=== PATIENT | male | born 1945 | race Caucasian/White ===

== ENCOUNTER → 2018-06-17 16:11 | Outpatient (CLI) | payer OTHER, SELFPAY ==
--- NOTE | 2018-06-17 | DI.RAD.S_ITS ---
PROCEDURE: XR CERVICAL SPINE 2V OR 3V INDICATIONS: Cervicalgia TECHNIQUE: 3 view(s) of the cervical spine were acquired. COMPARISON: None. FINDINGS: Bones: No fractures or dislocations to the T1 level. The lateral masses of C1 appear intact on the odontoid view. No suspicious bony lesions. Straightening of the normal cervical lordosis and trace anterolisthesis of C3 on C4. Trace retrolisthesis of C5 on C6 and C6 on C7. Severe C5-C6 and C6-C7 disc degeneration. Multilevel facet arthropathy. Soft tissues: No prevertebral soft tissue swelling. IMPRESSION: Severe cervical disc degeneration, most pronounced at C5-C6 and C6-C7. Extensive endplate osteophyte formation. Diffuse facet arthropathy. Loss of the normal cervical lordosis. Dictated by: Jaspreet Fulton M.D. on 06/17/2018 at 18:10 Approved by: Jaspreet Fulton M.D. on 06/17/2018 at 18:11
== END ==
PROVIDERS: PCP Family Medicine; Visit Provider Family Medicine
DX: M50.321 Other cervical disc degeneration at C4-C5 level (principal); M47.812 Spondylosis without myelopathy or radiculopathy, cervical region
CPT/HCPCS: 72040

== ENCOUNTER 2024-10-28 14:54 | Emergency (ER) | payer MEDICARE, SELFPAY ==
[2024-10-28] VITALS (17 sets, daily range): BP systolic 129–167; BP diastolic 87–101; PULSE 75–97; RESP 16–26; TEMP 36.8; O2SAT 94–97; BMI 22.3
--- NOTE | 2024-10-28 15:01 | DI.RAD.S_ITS ---
PROCEDURE: XR CHEST 1V INDICATIONS: Shortness of breath TECHNIQUE: One view of the chest was acquired. COMPARISON: None. FINDINGS: Surgical changes and devices: None. Lungs and pleura: Small bilateral pleural effusions, greater on the right. Opacities in the right mid lung zone as well as the right medial lower lung zone. Mediastinum: Mediastinal contours appear normal. Heart size is normal. Bones and chest wall: No suspicious bony lesions. Overlying soft tissues appear unremarkable. IMPRESSION: Right pulmonary opacities, may represent infection. Recommend follow-up radiograph after treatment to ensure resolution and exclude underlying neoplasm. Small bilateral pleural effusions. Mild prominence of the interstitial markings may represent pulmonary edema. Dictated by: Kishor Stevens M.D. on 10/28/2024 at 15:46 Approved by: Kishor Stevens M.D. on 10/28/2024 at 15:47
--- NOTE | 2024-10-28 15:08 | EKG_ITS ---
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
--- NOTE | 2024-10-28 15:37 | ED_ITS ---
HPI - SOB/Dyspnea <Real Bolanos MD - Last Filed: 11/03/24 08:48> General Chief Complaint: Shortness of Breath/Dyspnea Stated Complaint: Sent from DR to test heart Time Seen by Provider: 10/28/24 15:21 Source: patient Mode of arrival: Ambulatory Limitations: no limitations History of Present Illness HPI Narrative: Patient is sent here from outpatient echocardiogram with [facility] office in [facility] [place]. Patient was having outpatient echocardiogram due to dyspnea ongoing for the past 1 month. Family doctor had seen patient for pneumonia place on antibiotics and heard a murmur and scheduled outpatient echocardiogram. While at the cardiology center in [facility] [place], blood or blood bank technician noticed abnormality on the echocardiogram and alerted Dr. Pelaez, patch setter, in the office and was instructed to come here for further evaluation. Patient does have very audible systolic murmur. Denies any previous cardiac history. Denies any chest pain. Patient is scheduled to see Dr. Pelaez in 2 days for the 1st time Related Data Home Medications Medication Instructions Recorded Confirmed CHOLECALCIFEROL (VITAMIN D3) 5,000 units PO QDAY ##0 11/04/12 magnesium citrate ##0 03/24/13 vit [id number]-[id number]-LC no.15 500 ##0 06/12/16 mcg-400 mcg-10 mg-400 mg capsule (GlycoTrol) [CO-Q-10] Q DAY ##0 07/04/16 vitamins A and D-white 5 gm Q DAY ##0 09/26/16 petrolatum-lanolin topical ointment in a packet Previous Rx's Medication Instructions Recorded lisinopril 20 mg tablet 20 mg PO QDAY #90 mg 05/21/16 clopidogrel 75 mg tablet (Plavix) 75 mg PO QDAY #90 tabs 06/12/16 atorvastatin 10 mg tablet (Lipitor) 10 mg PO HS #90 tabs 07/10/16 tramadol 50 mg tablet 0 PO SEE INSTRUCTIONS #30 tabs 08/15/16 betamethasone dipropionate 0.05 % 1 gilma topical QDAY ##30 09/26/16 topical cream furosemide 20 mg tablet (Lasix) 20 mg PO DAILY #7 tabs 10/28/24 Allergies Allergy/AdvReac Type Severity Reaction Status Date / Time aspirin [ASPIRIN] Allergy Intermediate RASH, Unverified 04/11/18 11:52 HIVES AND WHEEZING Review of Systems <Real Bolanos MD - Last Filed: 11/03/24 08:48> Review of Systems Narrative: GENERAL: Negative chills, fatigue, malaise, fever, sweats. HEENT: Negative sinus pain, ear pain, sore throat RESPIRATORY: Positive dyspnea, negative cough CARDIOVASCULAR: Negative chest pain, palpitations GASTROINTESTINAL: Negative vomiting, nausea, abdominal pain : Negative dysuria, frequency, hematuria MUSCULOSKELETAL: Negative muscle or bony pain SKIN: Negative rash, skin lesions NEUROLOGIC: Negative weakness, numbness ROS Unobtainable: All systems reviewed & are unremarkable except as noted in HPI and below Patient History <Real Bolanos MD - Last Filed: 11/03/24 08:48> Surgical History (Updated 10/29/17 @ 05:17 by Conversion Provider) History of knee replacement Family History (Updated 12/05/16 @ 00:00 by Conversion Provider) Brother Age: 81 Heart disease Hypertension High cholesterol DVT (deep venous thrombosis) Father Heart disease Hypertension High cholesterol Grandfather Heart disease Sister Age: 79 Breast cancer Social History Smoking Status: Never smoker Smoking Status: Never smoker Exam <Real Bolanos MD - Last Filed: 11/03/24 08:48> Narrative Exam Narrative: GENERAL: in no distress, not toxic not dyspneic HEAD: Normocephalic. EYES: Pupils equal round ENT: Mucous membranes moist. NECK: Trachea midline. CARDIOVASCULAR: Regular rate and rhythm, loud systolic murmur RESPIRATORY: Clear to auscultation. Breath sounds equal bilaterally. No wheezes, rales, or rhonchi. GASTROINTESTINAL: Abdomen soft, non-tender EXTREMITIES: No gross deformities. BACK: No flank tenderness. NEURO: AOx4. Clear speech SKIN: Warm and dry PSYCH: Not anxious, is cooperative Initial Vital Signs Initial Vital Signs: Vital Signs Temperature 98.2 F 10/28/24 14:57 Pulse Rate 75 10/28/24 14:57 Respiratory Rate 16 10/28/24 14:57 Blood Pressure 134/88 10/28/24 14:57 Pulse Oximetry 94 10/28/24 14:57 Oxygen Delivery Method Room Air 10/28/24 14:57 <Dyllan Stoner MD - Last Filed: 10/29/24 02:28> Initial Vital Signs Initial Vital Signs: Vital Signs Temperature 98.2 F 10/28/24 14:57 Pulse Rate 75 10/28/24 14:57 Respiratory Rate 16 10/28/24 14:57 Blood Pressure 134/88 10/28/24 14:57 Pulse Oximetry 94 10/28/24 14:57 Oxygen Delivery Method Room Air 10/28/24 14:57 Course <Real Bolanos MD - Last Filed: 11/03/24 08:48> Orders Ordered: Discontinued Medications Furosemide (Furosemide 40 Mg/4 Ml Vial) 20 mg IV NOW ONE Stop: 10/28/24 18:36 Last Admin: 10/28/24 18:46 Dose: 20 mg Documented By: EVENS Vital Signs Vital signs: Vital Signs - 8 hr 10/28/24 18:30 10/28/24 18:31 10/28/24 18:31 Pulse Rate 97 H 91 H Respiratory Rate 19 20 Blood Pressure 167/88 H Pulse Oximetry 95 95 10/28/24 19:00 10/28/24 19:01 10/28/24 19:01 Pulse Rate 79 88 Respiratory Rate 25 H 26 H Blood Pressure 129/87 Pulse Oximetry 94 94 10/28/24 19:30 10/28/24 19:30 10/28/24 20:00 Pulse Rate 89 83 Respiratory Rate 22 Blood Pressure 149/100 H Pulse Oximetry 95 95 10/28/24 20:30 10/28/24 21:00 10/28/24 21:00 Pulse Rate 80 82 Respiratory Rate 20 26 H Blood Pressure 141/92 H Pulse Oximetry 96 96 <Dyllan Stoner MD - Last Filed: 10/29/24 02:28> Orders Ordered: Discontinued Medications Furosemide (Furosemide 40 Mg/4 Ml Vial) 20 mg IV NOW ONE Stop: 10/28/24 18:36 Last Admin: 10/28/24 18:46 Dose: 20 mg Documented By: GW Vital Signs Vital signs: Vital Signs - 8 hr 10/28/24 18:30 10/28/24 18:31 10/28/24 18:31 Pulse Rate 97 H 91 H Respiratory Rate 19 20 Blood Pressure 167/88 H Pulse Oximetry 95 95 10/28/24 19:00 10/28/24 19:01 10/28/24 19:01 Pulse Rate 79 88 Respiratory Rate 25 H 26 H Blood Pressure 129/87 Pulse Oximetry 94 94 10/28/24 19:30 10/28/24 19:30 10/28/24 20:00 Pulse Rate 89 83 Respiratory Rate 22 Blood Pressure 149/100 H Pulse Oximetry 95 95 10/28/24 20:30 10/28/24 21:00 10/28/24 21:00 Pulse Rate 80 82 Respiratory Rate 20 26 H Blood Pressure 141/92 H Pulse Oximetry 96 96 MDM - SOB/Dyspnea <Real Bolanos MD - Last Filed: 11/03/24 08:48> Lab Data 10/28/24 15:16 10/28/24 15:16 Labs: Lab Results 10/28/24 10/28/24 Range/Units 15:16 19:16 WBC 7.4 (4.5-11.0) X10^3/uL RBC 4.57 (4.5-5.9) X10^6/uL Hgb 15.3 (13.5-17.5) g/dL Hct 44.2 (41-53) % MCV 96.7 (80-100) fL MCH 33.4 (26-34) PG MCHC 34.5 (30-36) % RDW 13.2 (11.6-14.8) % Plt Count 238 (150-400) X10^3/uL Neut % (Auto) 69.9 (50-75) % Lymph % (Auto) 20.3 L (25-40) % Kent % (Auto) 7.3 (3-14) % Eos % (Auto) 1.7 L (2-4) % Baso % (Auto) 0.8 (0-2) % Neut # (Auto) 5200 (7891-2298) /uL Lymph # (Auto) 1500 (0247-5731) /uL Kent # (Auto) 500 (0-900) /uL Eos # (Auto) 100 (0-450) /uL Baso # (Auto) 100 (0-100) /uL PT 13.7 H (9.4-12.5) SECONDS INR 1.2 (0.9-1.3) APTT 32 (25.1-36.5) SECONDS Sodium 140 (137-145) mmol/L Potassium 4.1 (3.4-5.1) mmol/L Chloride 106 (98-107) mmol/L Carbon Dioxide 28 (22-32) mmol/L BUN 24 H (9-20) mg/dL Creatinine 0.83 (0.66-1.25) mg/dL Estimated GFR > 60 (>60) mL/min BUN/Creatinine Ratio 28.9 H (6-22) Glucose 112 H (70-99) mg/dL Lactate 1.4 (0.7-2.1) mmol/L Calcium 9.0 (8.4-10.2) mg/dL Total Bilirubin 0.6 (0.2-1.3) mg/dL AST 79 H (17-59) IU/L ALT 75 H (<50) IU/L Alkaline Phosphatase 67 (38-126) U/L Total Creatine Kinase 296 H (55-170) U/L Troponin I 0.062 H 0.074 H (0.01-0.034) ng/mL NT-Pro-B Natriuret Pep 3490 H (<450) pg/mL Total Protein 7.5 (6.3-8.2) g/dL Albumin 4.2 (3.5-5.0) g/dL Globulin 3.3 (1.7-4.1) g/dL Albumin/Globulin Ratio 1.3 (1.0-2.8) [facility] Narrative Medical decision making narrative: Patient is sent here from outpatient echocardiogram with [facility] office in [facility] [place]. Patient was having outpatient echocardiogram due to dyspnea ongoing for the past 1 month. Family doctor had seen patient for pneumonia place on antibiotics and heard a murmur and scheduled outpatient echocardiogram. While at the cardiology center in [facility] [place], blood or blood bank technician noticed abnormality on the echocardiogram and alerted Dr. Pelaez, patch setter, in the office and was instructed to come here for further evaluation. Patient does have very audible systolic murmur. Denies any previous cardiac history. Denies any chest pain. Patient is scheduled to see Dr. Pelaez in 2 days for the 1st time After history and exam, CBC CMP BNP troponin EKG chest x-ray [facility] Medical records reviewed: No recent visit for this complaint Differential considered: Includes but not limited to aortic stenosis, aortic insufficiency mitral/tricuspid valve disease Lab Test results independently reviewed as above. Pertinent findings: WBC 7.48 hemoglobin 15.3 INR 1.2 sodium 140 potassium 4.1 BUN 24 creatinine 0.83 troponin 0.062 BNP 3490 Independently reviewed EKG normal sinus rhythm rate [address] elevation or depression Imaging studies independently reviewed: Chest x-ray small bilateral pleural effusions Consultations: 3:59 p.m.. I did speak with patient's patch setter that would be seeing him in [address] Pelaez would like blood cultures CBC CMP BNP chest x-ray to be done here. He did review the echocardiogram in the office. Official report has not been done but it is concerning for severe mitral valve regurgitation. Ejection fraction 45%. There is inferior lateral wall abnormality. I did review with him abnormal troponin here. We are getting a repeat troponin at 7 p.m.. However need to call on-call patch setter for their group. He is not on-call today. 6:30 p.m.. I spoke with [facility] patch setter Dr. Almeida, he feels the troponin elevation is likely from cardiac demand and not non-STEMI or a STEMI. Patient never had chest pain. I did review with him patient's heart rate elevating when up and walking on road testing here. He would like patient to have Lasix 20 mg IV and Re test afterwards and if not improving he will need to be transferred to [facility], otherwise can go home and follow up with Dr. Pelaez as scheduled in 48 hours. Re-evaluations: 5:58 p.m.. Updated patient results and findings. He may be transferred tonight for more urgent workup and evaluation given abnormal echocardiogram and blood work/troponin. Awaiting to hear call back from his cardiology providers for further instructions Discussion: Appropriate for transfer for further cardiac workup. Patient has abnormal echocardiogram and elevated troponin. Although chest pain-free he has been dyspneic. He was treated for pneumonia recently and concern for endocarditis was done for both murmur found in the primary care office as well as to rule out endocarditis. Diagnosis: Dyspnea/abnormal echocardiogram/elevated troponin 6:[address] Bolanos: Sign out to Dr. Stoner, I have spoken with cardiology services. Patient needs reassessment after Lasix and if no improvement will need to be transferred to [facility]. Otherwise home with low-dose Lasix daily and follow up with Dr. Pelaez his patch setter in 48 hours as scheduled <Dyllan Stoner MD - Last Filed: 10/29/24 02:28> Lab Data Labs: Lab Results 10/28/24 10/28/24 Range/Units 15:16 19:16 WBC 7.4 (4.5-11.0) X10^3/uL RBC 4.57 (4.5-5.9) X10^6/uL Hgb 15.3 (13.5-17.5) g/dL Hct 44.2 (41-53) % MCV 96.7 (80-100) fL MCH 33.4 (26-34) PG MCHC 34.5 (30-36) % RDW 13.2 (11.6-14.8) % Plt Count 238 (150-400) X10^3/uL Neut % (Auto) 69.9 (50-75) % Lymph % (Auto) 20.3 L (25-40) % Kent % (Auto) 7.3 (3-14) % Eos % (Auto) 1.7 L (2-4) % Baso % (Auto) 0.8 (0-2) % Neut # (Auto) 5200 (9804-5738) /uL Lymph # (Auto) 1500 (8087-2782) /uL Kent # (Auto) 500 (0-900) /uL Eos # (Auto) 100 (0-450) /uL Baso # (Auto) 100 (0-100) /uL PT 13.7 H (9.4-12.5) SECONDS INR 1.2 (0.9-1.3) APTT 32 (25.1-36.5) SECONDS Sodium 140 (137-145) mmol/L Potassium 4.1 (3.4-5.1) mmol/L Chloride 106 (98-107) mmol/L Carbon Dioxide 28 (22-32) mmol/L BUN 24 H (9-20) mg/dL Creatinine 0.83 (0.66-1.25) mg/dL Estimated GFR > 60 (>60) mL/min BUN/Creatinine Ratio 28.9 H (6-22) Glucose 112 H (70-99) mg/dL Lactate 1.4 (0.7-2.1) mmol/L Calcium 9.0 (8.4-10.2) mg/dL Total Bilirubin 0.6 (0.2-1.3) mg/dL AST 79 H (17-59) IU/L ALT 75 H (<50) IU/L Alkaline Phosphatase 67 (38-126) U/L Total Creatine Kinase 296 H (55-170) U/L Troponin I 0.062 H 0.074 H (0.01-0.034) ng/mL NT-Pro-B Natriuret Pep 3490 H (<450) pg/mL Total Protein 7.5 (6.3-8.2) g/dL Albumin 4.2 (3.5-5.0) g/dL Globulin 3.3 (1.7-4.1) g/dL Albumin/Globulin Ratio 1.3 (1.0-2.8) [facility] Narrative Medical decision making narrative: Patient is sent here from outpatient echocardiogram with [facility] in [facility] [place]. Patient was having outpatient echocardiogram due to dyspnea ongoing for the past 1 month. Family doctor had seen patient for pneumonia place on antibiotics and heard a murmur and scheduled outpatient echocardiogram. While at the cardiology center in [facility] [place], blood or blood bank technician noticed abnormality on the echocardiogram and alerted Dr. Pelaez, patch setter, in the office and was instructed to come here for further evaluation. Patient does have very audible systolic murmur. Denies any previous cardiac history. Denies any chest pain. Patient is scheduled to see Dr. Pelaez in 2 days for the 1st time After history and exam, CBC CMP BNP troponin EKG chest x-ray [facility] Medical records reviewed: No recent visit for this complaint Differential considered: Includes but not limited to aortic stenosis, aortic insufficiency mitral/tricuspid valve disease Lab Test results independently reviewed as above. Pertinent findings: WBC 7.48 hemoglobin 15.3 INR 1.2 sodium 140 potassium 4.1 BUN 24 creatinine 0.83 troponin 0.062 BNP 3490 Independently reviewed EKG normal sinus rhythm rate [address] elevation or depression Imaging studies independently reviewed: Chest x-ray small bilateral pleural effusions Consultations: 3:59 p.m.. I did speak with patient's patch setter that would be seeing him in [address] Pelaez would like blood cultures CBC CMP BNP chest x-ray to be done here. He did review the echocardiogram in the office. Official report has not been done but it is concerning for severe mitral valve regurgitation. Ejection fraction 45%. There is inferior lateral wall abnormality. I did review with him abnormal troponin here. We are getting a repeat troponin at 7 p.m.. However need to call on-call patch setter for their group. He is not on-call today. 6:30 p.m.. I spoke with [facility] patch setter Dr. Almeida, he feels the troponin elevation is likely from cardiac demand and not non-STEMI or a STEMI. Patient never had chest pain. I did review with him patient's heart rate elevating when up and walking on road testing here. He would like patient to have Lasix 20 mg IV and Re test afterwards and if not improving he will need to be transferred to [facility], otherwise can go home and follow up with Dr. Pelaez as scheduled in 48 hours. Re-evaluations: 5:58 p.m.. Updated patient results and findings. He may be transferred tonight for more urgent workup and evaluation given abnormal echocardiogram and blood work/troponin. Awaiting to hear call back from his cardiology providers for further instructions Discussion: Appropriate for transfer for further cardiac workup. Patient has abnormal echocardiogram and elevated troponin. Although chest pain-free he has been dyspneic. He was treated for pneumonia recently and concern for endocarditis was done for both murmur found in the primary care office as well as to rule out endocarditis. Diagnosis: Dyspnea/abnormal echocardiogram/elevated troponin 6:[address] Bolanos: Sign out to Dr. Stoner, I have spoken with cardiology services. Patient needs reassessment after Lasix and if no improvement will need to be transferred to [facility]. Otherwise home with low-dose Lasix daily and follow up with Dr. Pelaez his patch setter in 48 hours as scheduled 10/28/24, 1899, Herbie. Sign-out from Dr. Bolanos. 79-year-old male with outpatient murmur discovered a month ago, finally had outpatient echocardiogram earlier today, where cardiology Dr. Pelaez was present who will be seeing him in 2 more days in clinic, noted to have EF 45% and severe mitral regurgitation and inferior lateral wall motion abnormality, troponin 0.06 indeterminate range with repeat troponin still pending. On road testing he had increased heart rate, BNP elevated 3500, cross-cover cardiology Dr. Almeida at [facility] was contacted, advised trial of IV Lasix 20 mg, repeat road testing, if tolerated then discharge on 20 mg oral Lasix daily with close follow up [address] Pelaez as planned. If he does not tolerate this then consider transfer to [facility] to their Cardiology Service. Assumed care. Repeat troponin 0.074 indeterminate range but slightly higher, of unclear significance in context of CHF, we will reconsult cardiology to see if they are satisfied with the workup now. He did tolerate ambulation trial well. Await call back from cardiology Dr. Almeida at [facility]. 2030, case discussed again with Dr. Almeida who was familiar with the patient, does not seem concern with slight interval change indeterminate range troponin, no further workup for now, advises Lasix 20 mg daily, and close follow up with Dr. Pealez in 2 days as planned. Patient informed, agrees with plan, discharged home. Prescription sent to his pharmacy. Discharge Plan Departure Patient Disposition: Home Clinical Impression: Shortness of Breath Congestive heart failure Qualifiers: Heart failure type: unspecified Heart failure chronicity: unspecified Qualified Code(s): I50.9 - Heart failure, unspecified Mitral regurgitation Qualifiers: Cardiac valve disease etiology: etiology unspecified Qualified Code(s): I34.0 - Nonrheumatic mitral (valve) insufficiency Activity Restrictions/Additional Instructions: Murmur evaluation found to have on echocardiogram significant mitral valve regurgitation, studies suspicious for congestive heart failure, initial poor tolerance to ambulation with increased heart rate, IV Lasix given after consultation with Cardiology, symptoms improved, advised close follow up with your regular patch setter Dr. Pelaez in 2 days as an outpatient as scheduled. Cross cover patch setter advised use of 20 mg oral Lasix daily until you see your patch setter, prescription sent to your pharmacy. Follow up with Cardiology in 2 days as planned. Continue your other chronic medications as planned for now. Return to this/nearest emergency department for any change worsening symptoms or any concerns prior Prescriptions: New furosemide [Lasix] 20 mg tablet 20 mg PO DAILY Qty: 7 0RF No Action CHOLECALCIFEROL (VITAMIN D3) 5,000 units PO QDAY Qty: 0 magnesium citrate 296 ML solution Qty: 0 lisinopril 20 MG tablet 20 mg PO QDAY Qty: 90 1RF vit [id number]-eontqjdccx-ST no.15 [GlycoTrol] 1 EACH capsule Qty: 0 clopidogrel [Plavix] 75 MG tablet 75 mg PO QDAY Qty: 90 1RF [CO-Q-10] Q DAY Qty: 0 atorvastatin [Lipitor] 10 MG tablet 10 mg PO HS Qty: 90 1RF tramadol 50 MG tablet 0 PO SEE INSTRUCTIONS Qty: 30 3RF vits A and D-white pet-lanolin 5 GM ointment in packet 5 gm Q DAY Qty: 0 betamethasone dipropionate 0.05 % cream 1 gilma Topical QDAY Qty: 30 0RF Referrals: Edd Ann MD [Primary Care Provider] - Stand Alone Forms: Patient Portal/API/Survey
[2024-10-28 15:38] LABS: Add Manual Diff / Slide Review NO; Basophils Absolute Auto 100 /uL (0-100); Basophils Percent Auto 0.8 % (0-2); Eosinophils Absolute Auto 100 /uL (0-450); Eosinophils Percent Auto 1.7 % (2-4); Hematocrit 44.2 % (41-53); Hemoglobin 15.3 g/dL (13.5-17.5); Lymphocytes Absolute Auto 1500 /uL (1100-4500); Lymphocytes Percent Auto 20.3 % (25-40); Mean Corpuscular HGB Conc 34.5 % (30-36); Mean Corpuscular Hemoglobin 33.4 PG (26-34); Mean Corpuscular Volume 96.7 fL (80-100); Monocytes Absolute Auto 500 /uL (0-900); Monocytes Percent Auto 7.3 % (3-14); Neutrophils Absolute Auto 5200 /uL (1500-7000); Neutrophils Percent Auto 69.9 % (50-75); Platelet Count 238 X10^3/uL (150-400); Red Blood Cell Count 4.57 X10^6/uL (4.5-5.9); Red Cell Distribution Width 13.2 % (11.6-14.8); White Blood Cell Count 7.4 X10^3/uL (4.5-11.0)
[2024-10-28 15:41] LABS: INR 1.2 (0.9-1.3); Prothrombin Time 13.7 SECONDS (9.4-12.5)
[2024-10-28 15:47] LABS: Alanine Aminotransferase 75 IU/L (<50); Albumin 4.2 g/dL (3.5-5.0); Albumin Globulin Ratio 1.3 (1.0-2.8); Alkaline Phosphatase 67 U/L (38-126); Aspartate Aminotransferase 79 IU/L (17-59); BUN Creatinine Ratio 28.9 (6-22); Bilirubin Total 0.6 mg/dL (0.2-1.3); Blood Urea Nitrogen 24 mg/dL (9-20); Carbon Dioxide 28 mmol/L (22-32); Chloride 106 mmol/L (98-107); Estimated Glomerular Filt Rate > 60 mL/min (>60); Globulin 3.3 g/dL (1.7-4.1); Glucose 112 mg/dL (70-99); HEMOLYSIS 18 (0-50); Potassium 4.1 mmol/L (3.4-5.1); Sodium 140 mmol/L (137-145); Total Protein 7.5 g/dL (6.3-8.2)
[2024-10-28 15:48] LABS: Lactate (Lactic Acid) 1.4 mmol/L (0.7-2.1)
[2024-10-28 15:51] LABS: PTT Partial Thromboplastin Tim 32 SECONDS (25.1-36.5)
[2024-10-28 15:59] LABS: NT-proBNP (BNP-Adult 18+) 3490 pg/mL (<450); Troponin I 0.062 ng/mL (0.01-0.034)
[2024-10-28] MEDS: FUROSEMIDE 40 MG/4 ML VIAL 20 MG IV (18:46)
[2024-10-28 19:35] LABS: Creatine Kinase 296 U/L (55-170)
[2024-10-28 19:48] LABS: Troponin I 0.074 ng/mL (0.01-0.034)
== END 2024-10-28 21:08 | disposition home or self-care (01) ==
PROVIDERS: Emergency Medicine; Emergency Provider Emergency Medicine; PCP Family Medicine
DX: I50.9 Heart failure, unspecified (principal); I34.0 Nonrheumatic mitral (valve) insufficiency; R79.89 Other specified abnormal findings of blood chemistry
CPT/HCPCS: 36415; 71045; 80053; 82550; 83605; 83880; 84484; 85025; 85610; 85730; 87040; 93005; 96374; 99284; J1938

== ENCOUNTER 2024-12-29 07:40 | Outpatient (RCR) | payer MEDICARE, SELFPAY | END 2024-12-29 09:40 | LOC: CAR 07:40 | PROVIDERS: PCP Physician Assistant; Referring Provider Internal Medicine Interventional Cardiology; Visit Provider Internal Medicine Interventional Cardiology | DX: Z98.890 Other specified postprocedural states (principal) | CPT/HCPCS: 93798 ==

== ENCOUNTER → 2025-01-21 12:25 | Outpatient (CLI) | payer MEDICARE, SELFPAY ==
--- NOTE | 2025-01-21 12:26 | DI.ECHO.S_ITS ---
[place] [facility] : : [id number] : : [place] : : [id number] : : Phone: [phone] Echocardiogram Report + + :Name: GARY BARRETT Study Date: 01/21/2025 Height: 69 in : :[facility] ReadingLocation: Weight: 148 lb : : Gender: Male BSA: 1.8 m2 : :: 1945 Age: 79 yrs BP: 134/68 mmHg: :Reason For Study: MITRAL VALVE REGURGITATION : :Ordering Physician: ASTER, : :MONKIA HEADLEY Performed By: Teressa Graves : :Referring: MELISSA LIANG PA-C : + + Interpretation Summary 1) Normal left ventricular size and thickness with mildly to moderately reduced systolic function (EF 40-45). 2) Basal inferolateral wall and basal anterolateral wall are severely hypokinetic. 3) Mildly enlarged right ventricle with normal function. 4) A mitral valve clip is present. The mitral valve mean gradient is 2.1 mmHg. 5) There is mild to moderate mitral regurgitation. 6) Doppler evidence suggests a left to right interatrial shunt. 7) Compared to the echo done 06/29/2016, mitraclip is present on this study and LVEF has decreased from 50-55% to 40-45% on this study. Procedure: A two-dimensional transthoracic echocardiogram with color flow and Doppler was performed. The study quality was technically adequate. Comparison is made with the echocardiogram of 06/29/2016. The patient was in sinus bradycardia with heart rates between 37-48 bpm during the exam. Left Ventricle: The left ventricle is moderately dilated. There is normal left ventricular wall thickness. The ejection fraction is estimated to be 40- 45%. Basal inferolateral wall and basal anterolateral wall are severely hypokinetic. Diastolic function could not be accurately assessed due to confounding valvular disease. Right Ventricle: The right ventricle is mildly dilated. The right ventricular systolic function is normal. Atria: The left atrial size is normal. Right atrial size is normal. Doppler evidence suggests a left to right interatrial shunt. Mitral Valve: The mitral valve leaflets appear mildly thickened. A mitral valve clip is present. The mitral valve mean gradient is 2.1 mmHg. There is mild to moderate mitral regurgitation. Aortic Valve: The aortic valve is trileaflet. The aortic valve opens well. There is no aortic valve stenosis. There is trace aortic regurgitation. Tricuspid Valve: The tricuspid valve leaflets are thin and pliable. There is mild tricuspid regurgitation. The right ventricular systolic pressure is estimated to be at least 33 mmHg based on an estimated right atrial pressure of 3 mm Hg. Pulmonic Valve: The pulmonic valve leaflets are thin and pliable; valve motion is normal. There is trace pulmonic regurgitation. Great Vessels: The aortic root is mildly dilated. The ascending aorta could not be visualized. The IVC is of normal diameter and collapses greater than 50% with a sniff. This suggests a low right atrial pressure of 3 mm Hg. Pericardium/ Pleura There is no pericardial effusion. There is no pleural effusion. MMode/2D Measurements & Calculations LVIDd: 6.5 cm LVOT diam: 2.4 cm LVIDs: 5.3 cm Ao root diam: 4.1 cm FS: 18.2 % Ao Arch Diam (Prox Trans): 2.8 cm IVSd: 1.0 cm LVPWd: 0.68 cm LV ramírez. diameter/BSA (cm/m^2): 3.6 LV sys. diameter/BSA (cm/m^2): 2.9 LA A2 area: 31.7 cm2 RA long axis: 5.8 cm LA A4 area: 25.6 cm2 RA area: 22.0 cm2 LA length (vol): 5.7 cm RA vol: 71.2 ml LA vol: 120.7 ml RA : 39.2 ml/m2 LA vol index: 66.4 ml/m2 IVC diam: 2.0 cm RVD1 (basal): 4.6 cm RVD2 (mid): 4.1 cm TAPSE: 2.7 cm Doppler Measurements & Calculations Ao V2 max: 140.5 cm/sec LVOT Max Gregorio: 84.7 cm/sec Ao V2 mean: 95.8 cm/sec LV V1 max P.9 mmHg Ao max P.9 mmHg LV V1 VTI: 19.3 cm Ao mean P.2 mmHg NYLA(I,D): 2.7 cm2 Ao V2 VTI: 32.6 cm NYLA(V,D): 2.7 cm2 sev ratio: 0.59 NYLA indexed to BSA (cm^2/m^2): 1.5 MV E max gregorio: 114.7 cm/sec TR max gregorio: 274.6 cm/sec MV A max gregorio: 114.5 cm/sec TR max P.2 mmHg MV E/A: 1.0 PA V2 max: 78.2 cm/sec Med Peak E' Gregorio: 4.1 cm/sec PA V2 mean: 58.1 cm/sec E/E' med: 28.1 PA mean P.5 mmHg Lat Peak E' Gregorio: 4.7 cm/sec PA pr(Accel): 34.7 mmHg E/E' lat: 24.5 E/e' average: 26.3 MV dec time: 0.42 sec MVA(VTI): 1.5 cm2 MV V2 mean: 56.2 cm/sec SV(LVOT): 87.0 ml MV mean P.7 mmHg MV V2 VTI: 59.7 cm Reading Physician:04:29 PM
== END ==
PROVIDERS: PCP Physician Assistant; Referring Provider Physician Assistant Medical; Visit Provider Physician Assistant Medical
DX: I08.1 Rheumatic disorders of both mitral and tricuspid valves (principal); I77.810 Thoracic aortic ectasia
CPT/HCPCS: 93306